=== PATIENT | male | born 2000 | race Caucasian/White ===

== ENCOUNTER 2022-06-29 19:10 | Emergency (ER) | payer OTHER, SELFPAY ==
[2022-06-29 19:17] VITALS: BP 139/80; PULSE 104; RESP 18; TEMP 36.8; O2SAT 96
--- NOTE | 2022-06-29 19:25 | ED.GENADUL_ITS ---
Discharge Plan Disposition Patient Disposition: HOME Condition: Improving Discharge Details Clinical Impression: Cellulitis of right lower extremity ED Provider: Vignesh Wu Home Meds and New Rx's Prescriptions: New cephalexin 500 mg capsule 500 mg PO TID 7 Days Qty: 21 0RF Discharge Instructions Instructions: Cellulitis (ED) Additional Instructions: Take antibiotics as prescribed 4 times daily for the first 24 hours, then 3 times daily. May apply warm compress to area to reduce discomfort. Tylenol as needed for aches or pains. Return for worsening, if you develop fever or chills, or any other acute concerns. Medical Decision Making This is a 21-year-old male with an abrasion to the right knee that is 10 days old. The past 48 hours he noted a lymphangitic streak of red ascending proximally on his right thigh through the groin to the inguinal region and developing a swollen lymph node. He has not had fever or chills. He has slightly elevated heart rate at triage, but was normal at the time of my exam. He is an otherwise healthy male. Likely this is staph and strep infection from abrasion to the patella. Discussed with him home management including a course of Keflex. He is stable and appropriate for discharge, he will return for any acute concern or worsening. HPI General Mode of arrival: ambulatory . Date/Time Provider Initiated Documentation: 06/29/22 19:11 . Limitations to Documentation: no limitations . Information obtained by: patient . History of Present Illness 21 year old M presents to the emergency department with the chief complaint of Right leg red streak, described as mild, Quality is described as constant, and is localized to the right and lower extremity. Patient reports no radiation. Patient started experiencing this hour(s) and it has been constant. No relieving factors improve symptom(s), No exacerbating factors reported . Patient notes denies fever/chills. Patient did receive the following treatments prior to arrival, none Related Data Home Medications Medication Instructions Recorded Confirmed cephalexin 500 mg capsule 500 mg PO TID 7 days #21 caps 06/29/22 Previous Rx's Medication Instructions Recorded cephalexin 500 mg capsule 500 mg PO TID 7 days #21 caps 06/29/22 Allergies Allergy/AdvReac Type Severity Reaction Status Date / Time No Known Allergies Allergy Unverified 06/29/22 19:22 General Stated Complaint: Cellulitis ASHLEY: 4 Review of Systems Narrative: No fever or chills. Abrasion to the right needed to 10 days old. Otherwise healthy male. 7 systems were reviewed and otherwise negative PFSH All Active Problems (Updated 06/29/22 @ 19:28 by Vignesh Wu MD) Cellulitis of right lower extremity (Acute) Social History Smoking risk assessment performed?: No Do you feel safe at home: Yes Exam Narrative Exam Narrative: GEN: awake, alert, oriented 3. Pleasant, well groomed, interactive. HEAD: Normocephalic, atraumatic EYES: PERRL, EOMI NECK: Full ROM, no SHAQUILLE, no menigismus CHEST/RESP: Nontender, clear to auscultation bilateral, no wheeze/rhonchi/rales CARDIOVASCULAR: RRR, no murmur, rub marcie. 2+ Rad pulse bilateral. Not tachycardic at the time of my exam EXT: Full ROM, no edema, there is a lymphangitic streak from the patella through the medial groin with palpable lymphadenopathy in the right inguinal region. There is an abrasion distal to the patella anteriorly. The joint is freely mobile and nontender. No joint effusion appreciated on exam Neuro: Grossly normal neurologic exam, conversant, interactive. Psych: Speech fluent, thoughts congruent, affect normal Course Vital Signs Vital signs: Vital Signs Temperature 36.8 C 06/29/22 19:17 Pulse 104 H 06/29/22 19:17 Respiratory Rate 18 06/29/22 19:17 Blood Pressure 139/80 06/29/22 19:17 Pulse Oximetry 96 06/29/22 19:17 Temperature 36.8 C 06/29/22 19:17 Temperature Source Skin 06/29/22 19:17 Pulse 104 H 06/29/22 19:17 Respiratory Rate 18 06/29/22 19:17 Respiratory Effort 06/29/22 19:21 Blood Pressure 139/80 06/29/22 19:17 Blood Pressure Position Sitting 06/29/22 19:17 Pulse Oximetry 96 06/29/22 19:17 Oxygen Delivery Method Room Air 06/29/22 19:17 Oxygen Flow Rate 0 06/29/22 19:17 Pain Level 3 06/29/22 19:17 Comment 06/29/22 19:17
[2022-06-29] MEDS: Cephalexin 500 MG CAP, 4 CAPS/BTL PO (19:31)
== END 2022-06-29 19:33 | disposition home or self-care (01) ==
LOC: ER 19:37
PROVIDERS: Emergency Provider Emergency Medicine
DX: L03.115 Cellulitis of right lower limb (principal)
CPT/HCPCS: 99283; 99284